=== PATIENT | male | born 1960 | race African-American/Black ===

== ENCOUNTER 2019-06-21 05:51 | Emergency (ER) | payer OTHER ==
[~2019-06-21] VITALS: Ht 172.7 cm; Wt 105.2 kg
[2019-06-21 07:22] VITALS: BP 159/96
[2019-06-21] MEDS ORDERED: metFORMIN HYDROCHLORIDE 500 MG TAB PO ONE (07:45)
== END 2019-06-21 08:17 ==
LOC: ER 05:56
DX: S01.111A Laceration without foreign body of right eyelid and periocular area, initial encounter (principal); E11.65 Type 2 diabetes mellitus with hyperglycemia; I10 Essential (primary) hypertension; F12.10 Cannabis abuse, uncomplicated; Z88.2 Allergy status to sulfonamides; X58.XXXA Exposure to other specified factors, initial encounter; Y93.89 Activity, other specified; Y92.89 Other specified places as the place of occurrence of the external cause; Y99.8 Other external cause status